=== PATIENT | male | born 1950 | race American Indian/Alaskan Native ===

== ENCOUNTER 2018-08-20 12:21 | Inpatient (IN) | payer MEDICARE ==
--- NOTE | 2018-08-20 12:48 | Emergency Department Report ---
Blank Doc - Documentation Documentation: This is a 68-year-old male that presents with left sided weakness, slurred spe ech, and facial drooping since Friday. This initial assessment/diagnostic orders/clinical plan/treatment(s) is/are subject to change based on patient's health status, clinical progression and re-assessment by fellow clinical providers in the ED. Further treatment and workup at subsequent clinical providers discretion. Patient/guardians urged not to elope from the ED as their condition may be serious if not clinically assessed and managed. Initial orders include: 1- Patient sent to MAIN ED for further evaluation and treatment 2- labs '3- CT head 4- EKG
[2018-08-20 13:10] LABS: Basophils # (Auto) 0.1 K/mm3 (0.0-0.1); Basophils % (Auto) 1.3 % (0.0-1.8); Eosinophils # (Auto) 0.2 K/mm3 (0.0-0.4); Eosinophils % (Auto) 3.2 % (0.0-4.3); Hematocrit 43.9 % (35.5-45.6); Hemoglobin 15.3 gm/dl (11.8-15.2); Lymphocytes # (Auto) 1.4 K/mm3 (1.2-5.4); Lymphocytes % (Auto) 26.2 % (13.4-35.0); Mean Corpuscular HGB Conc 35 % (32-34); Mean Corpuscular Volume 92 fl (84-94); Monocytes # (Auto) 0.5 K/mm3 (0.0-0.8); Monocytes % (Auto) 9.4 % (0.0-7.3); Platelet Count 231 K/mm3 (140-440); Red Blood Count 4.79 M/mm3 (3.65-5.03); Red Cell Distribution Width 15.1 % (13.2-15.2)
[2018-08-20 13:23] LABS: INR 1.02 (0.87-1.13)
[2018-08-20 13:24] LABS: Partial Thromboplastin Time 26.7 Sec. (24.2-36.6); Thrombin Time 15.8 Sec. (15.1-19.6)
[2018-08-20] MEDS ORDERED: BABY ASPIRIN PO ONE (13:34)
[2018-08-20 13:35] LABS: Creatine Kinase MB 4.2 ng/mL (0.0-4.0)
[2018-08-20 13:37] LABS: Alanine Aminotransferase 11 units/L (7-56); Albumin 3.7 g/dL (3.9-5); BUN/Creatinine Ratio 14; Blood Urea Nitrogen 13 mg/dL (9-20); Calcium 8.9 mg/dL (8.4-10.2); Hemolysis Index 33
--- NOTE | 2018-08-20 13:42 | History and Physical Report ---
History of Present Illness Chief complaint: I feel weak on my left side, History of present illness: 68 YO Male with HTN, COPD, Nicotine Dependence,Gout presents to ED for evaluation. Pt states that he has experienced weakness to his left arm and leg, as well as left sided facial droop over the past 3 days, with persistent symptoms over the same time frame. Pt acknowledges difficulty with ambulation. Pt states that he thought symptoms would go away and did not seek urgent medical care. Pt transported to [facility] ED via private vehicle. Pt seen and evaluated in ED and found to have symptoms consistent with CVA, as well as EKG findings consistent with Atrial Fib, New onset. Pt denies fever, chills, CP, Palpitations, NVD, Trauma, unintentional weight loss, night sweats, skin rash, heat intolerance, or recent ill contacts. Pt admitted to telemetry and initiated on CVA protocol. Cardiology consulted in ED. CHADs 2 Vasc Score:4. Previous admission on 03/09/18 reviewed. All listed medication reconciled at time of a dmission. Past History Past Medical History: COPD, hypertension Past Surgical History: No surgical history, Other (reviewed) Social history: single, lives with family, smoking Family history: hypertension Medications and Allergies Allergies Allergy/AdvReac Type Severity Reaction Status Date / Time No Known Allergies Allergy Unverified 03/09/18 00:51 Home Medications Medication Instructions Recorded Confirmed Last Taken Type Indomethacin 25 mg PO BID 03/09/18 03/09/18 Unknown History Symbicort 160-4.5 Mcg Inhaler 160 mcg INHALATION BID 03/09/18 03/09/18 03/08/18 10:00 History 2 puffs Tamsulosin 0.4 mg PO DAILY 03/09/18 03/09/18 Unknown History amLODIPine 10 mg PO DAILY 03/09/18 03/09/18 Unknown History Albuterol Sulfate [Ventolin Hfa] 2 puff IH QID PRN #1 hfa.aer.ad 03/10/18 Unknown Rx Nicotine [Habitrol] 14 mg TD DAILY #30 patch 03/10/18 Unknown Rx Prednisone [predniSONE 5 mg (6-Day 5 mg PO .TAPER #1 tab.ds.pk 03/10/18 Unknown Rx Pack, 21 Tabs)] Review of Systems Constitutional: no weight loss, no weight gain, no fever, no chills Ears, nose, mouth and throat: no ear pain, no decreased hearing, no nose pain, no nasal congestion, no nasal discharge Cardiovascular: no chest pain, no orthopnea, no palpitations, no rapid/irregular heart beat, no edema, no syncope Respiratory: no cough, no cough with sputum, no excessive sputum, no hemoptysis, no shortness of breath Gastrointestinal: no abdominal pain, no nausea, no vomiting, no diarrhea, no constipation, no change in bowel habits Genitourinary Male: no hematuria, no flank pain, no discharge, no urinary frequency, no urinary hesitancy Rectal: no pain, no incontinence, no bleeding Musculoskeletal: no neck stiffness, no neck pain, no shooting arm pain, no arm numbness/tingling, no low back pain Integumentary: no rash, no pruritis, no redness, no sores, no wounds Neurological: paralysis, weakness, numbness, change in speech, balance difficulties, gait dysfunction, motor disturbance, no head injury, no transient paralysis Psychiatric: no anxiety, no memory loss, no change in sleep habits, no sleep d isturbances, no insomnia, no hypersomnia, no change in appetite Endocrine: no cold intolerance, no heat intolerance, no polyphagia, no excessive thirst, no polydipsia Hematologic/Lymphatic: no easy bruising, no easy bleeding Allergic/Immunologic: no urticaria, no allergic rhinitis, no wheezing Exam - Constitutional Vitals: Temp Pulse Resp BP Pulse Ox 98 F 72 18 147/94 99 08/20/18 12:50 08/20/18 12:50 08/20/18 12:50 08/20/18 12:50 08/20/18 12:50 General appearance: Present: mild distress - EENT Eyes: Present: PERRL ENT: hearing intact, clear oral mucosa, poor dentition - Neck Neck: Present: supple, normal ROM - Respiratory Respiratory effort: normal Respiratory: bilateral: CTA - Cardiovascular Rhythm: irregularly irregular Heart Sounds: Present: S1 & S2. Absent: rub, click - Extremities Extremities: pulses symmetrical, No edema Peripheral Pulses: within normal limits - Abdominal General gastrointestinal: Present: soft, non-tender, non-distended, normal bowel sounds Male genitourinary: Present: normal - Integumentary Integumentary: Present: clear, warm, dry - Musculoskeletal Musculoskeletal: left sided weakness - Psychiatric Psychiatric: appropriate mood/affect, intact judgment & insight - Neurologic Neurologic: CNII-XII intact, focal deficits, moves all extremities, no gait normal Results - Labs CBC & Chem 7: 08/20/18 12:57 08/20/18 12:57 Labs: Abnormal lab results 08/20/18 08/20/18 Range/Units 12:57 12:57 Hgb 15.3 H (11.8-15.2) gm/dl MCHC 35 H (32-34) % [place] % (Auto) 9.4 H (0.0-7.3) % Sodium 135 L (137-145) mmol/L Potassium 3.2 L (3.6-5.0) mmol/L Chloride 109.3 H (98-107) mmol/L Glucose 108 H (75-100) mg/dL Total Creatine Kinase 209 H (55-170) units/L CK-MB (CK-2) 4.2 H (0.0-4.0) ng/mL Albumin 3.7 L (3.9-5) g/dL Assessment and Plan - Patient Problems (1) Acute CVA (cerebrovascular accident) Current Visit: Yes Status: Acute Plan to address problem: Stroke Protocol: Admit to telemetry, (2) Hypokalemia Current Visit: Yes Status: Acute Plan to address problem: Repleted in ED, repeat bmp in am. (3) New onset atrial fibrillation Current Visit: Yes Status: Acute Plan to address problem: Rate controlled, Echo, Cardiology consulted in ED, CHADs 2Vasc Score:4, The rapeutic anticoagulation with Eliquis, telemetry. (4) HTN (hypertension) Current Visit: No Status: Acute Qualifiers: Hypertension type: essential hypertension Qualified Code(s): I10 - Essential (primary) hypertension Plan to address problem: Permissive hypertension overnight, hold antihypertensive medication overnight, monitor BP q shift, (5) Noncompliance with medication regimen Current Visit: No Status: Acute Plan to address problem: Pt counseled regarding medication noncompliance. (6) Nicotine dependence with withdrawal Current Visit: Yes Status: Acute Qualifiers: Nicotine product type: cigarettes Qualified Code(s): F17.213 - Nicotine dependence, cigarettes, with withdrawal Plan to address problem: Smoking cessation counseling, supportive care. (7) COPD (chronic obstructive pulmonary disease) Current Visit: Yes Status: Acute Qualifiers: Chronic bronchitis type: unspecified Plan to address problem: Supplemental oxygen, nebulizer therapy, smoking cessation, supportive care, pulse oximetry. (8) DVT prophylaxis Current Visit: Yes Status: Acute Plan to address problem: SCD to BLE while in bed, Therapeutic anticoagulation.
--- NOTE | 2018-08-20 13:43 | Emergency Department Report ---
ED Neuro Deficit HPI - General Chief Complaint: Neuro Symptoms/Deficit Stated Complaint: POSSIBLE STROKE Time Seen by Provider: 08/20/18 12:46 Source: patient Mode of arrival: Ambulatory Limitations: No Limitations - History of Present Illness Initial Comments: Mr. Jordan is a pleasant 68 yo male with hx of HTN, COPD, tobacco abuse who presents with left sided weakness and facial droop since Friday 3 days ago. Denies pain. No hx of irregular heart beat. No hx of alcohol use. He is a retired customer service driver. Brought to ED by his roomate Sabina. -: Gradual, days(s) (3) Location: left face, left arm, left leg Presenting Symptoms: Present: Weak/Paralyzed One Side Place: home Severity: moderate Quality: weak Improves With: none Worsens With: none On Anticoagulants: No Context: gradual onset Associated Symptoms: denies other symptoms Treatments Prior to Arrival: none - Related Data Home Medications: Home Medications Medication Instructions Recorded Confirmed Last Taken Indomethacin 25 mg PO BID 03/09/18 03/09/18 Unknown Symbicort 160-4.5 Mcg Inhaler 160 mcg INHALATION BID 03/09/18 03/09/18 03/08/18 10:00 2 puffs Tamsulosin 0.4 mg PO DAILY 03/09/18 03/09/18 Unknown amLODIPine 10 mg PO DAILY 03/09/18 03/09/18 Unknown Previous Rx's Medication Instructions Recorded Last Taken Type Albuterol Sulfate [Ventolin Hfa] 2 puff IH QID PRN #1 hfa.aer.ad 03/10/18 Unknown Rx Nicotine [Habitrol] 14 mg TD DAILY #30 patch 03/10/18 Unknown Rx Prednisone [predniSONE 5 mg (6-Day 5 mg PO .TAPER #1 tab.ds.pk 03/10/18 Unknown Rx Pack, 21 Tabs)] Allergies/Adverse Reactions: Allergies Allergy/AdvReac Type Severity Reaction Status Date / Time No Known Allergies Allergy Unverified 03/09/18 00:51 ED Review of Systems ROS: Stated complaint: POSSIBLE STROKE Other details as noted in HPI Comment: All other systems reviewed and negative Constitutional: denies: fever, malaise Respiratory: denies: cough Cardiovascular: denies: palpitations ED Past Medical Hx - Past Medical History Previous Medical History?: Yes Hx Hypertension: Yes Hx Asthma: Yes Hx COPD: Yes Additional medical history: Gout - Surgical History Past Surgical History?: No - Family History Family history: other (Patient can not recall) - Social History Smoking Status: Current Every Day Smoker Substance Use Type: None - Medications Home Medications: Home Medications Medication Instructions Recorded Confirmed Last Taken Type Indomethacin 25 mg PO BID 03/09/18 03/09/18 Unknown History Symbicort 160-4.5 Mcg Inhaler 160 mcg INHALATION BID 03/09/18 03/09/18 03/08/18 10:00 History 2 puffs Tamsulosin 0.4 mg PO DAILY 03/09/18 03/09/18 Unknown History amLODIPine 10 mg PO DAILY 03/09/18 03/09/18 Unknown History Albuterol Sulfate [Ventolin Hfa] 2 puff IH QID PRN #1 hfa.aer.ad 03/10/18 Unknown Rx Nicotine [Habitrol] 14 mg TD DAILY #30 patch 03/10/18 Unknown Rx Prednisone [predniSONE 5 mg (6-Day 5 mg PO .TAPER #1 tab.ds.pk 03/10/18 Unknown Rx Pack, 21 Tabs)] ED Neuro Physical Exam - General Limitations: No Limitations General appearance: alert, other (apparent left facial droop) Suspected Stroke: Yes - Head Head exam: Present: atraumatic, normocephalic - Eye Eye exam: Present: normal appearance - ENT ENT exam: Present: mucous membranes moist - Neck Neck exam: Present: normal inspection, full ROM - Respiratory Respiratory exam: Present: normal lung sounds bilaterally. Absent: respiratory distress, wheezes, rales, rhonchi, stridor - Cardiovascular Cardiovascular Exam: Present: regular rate, normal rhythm, normal heart sounds. Absent: systolic murmur, diastolic murmur, rubs, gallop - GI/Abdominal GI/Abdominal exam: Present: soft, normal bowel sounds. Absent: distended, tenderness, guarding, rebound - Rectal Rectal exam: Present: deferred - Extremities Exam Extremities exam: Present: normal inspection - Back Exam Back exam: Present: normal inspection - Neurological Exam Neurological exam: Present: alert, oriented X3 - NIHSS Assessment Interval: Baseline 1a. Level of Consciousness: alert/keenly responsive 1b. LOC Questions: answers both correctly 1c. LOC Commands: performs no tasks correctly 2. Best Gaze: normal 3. Visual: no visual loss 4. Facial Palsy: partial paralysis 5b. Motor Arm Right: no drift 5a. Motor Arm Left: drift 6a. Motor Leg Left: drift 6b. Motor Leg Right: no drift 7. Limb Ataxia: absent 8. Sensory: mild/moderate sensory loss 9. Best Language: mild/moderate aphasia 10. Dysarthria: mild/moderate dysarthria 11. Extinction/Inattention: visual/tactile inattention Total Score: 10 Stroke Severity: Moderate Stroke - Psychiatric Psychiatric exam: Present: normal affect, normal mood - Skin Skin exam: Present: warm, dry, intact, normal color. Absent: rash ED Course Vital Signs 08/20/18 12:50 Temperature 98 F Pulse Rate 72 Respiratory 18 Rate Blood Pressure 147/94 O2 Sat by Pulse 99 Oximetry - Lab Data Result diagrams: 08/20/18 12:57 08/20/18 12:57 Lab Results 08/20/18 08/20/18 08/20/18 Range/Units 12:54 12:57 12:57 WBC 5.4 (4.5-11.0) K/mm3 RBC 4.79 (3.65-5.03) M/mm3 Hgb 15.3 H (11.8-15.2) gm/dl Hct 43.9 (35.5-45.6) % MCV 92 (84-94) fl MCH 32 (28-32) pg MCHC 35 H (32-34) % RDW 15.1 (13.2-15.2) % Plt Count 231 (140-440) K/mm3 Lymph % (Auto) 26.2 (13.4-35.0) % [place] % (Auto) 9.4 H (0.0-7.3) % Eos % (Auto) 3.2 (0.0-4.3) % Baso % (Auto) 1.3 (0.0-1.8) % Lymph # 1.4 (1.2-5.4) K/mm3 [place] # 0.5 (0.0-0.8) K/mm3 Eos # 0.2 (0.0-0.4) K/mm3 Baso # 0.1 (0.0-0.1) K/mm3 Seg Neutrophils % 59.9 (40.0-70.0) % Seg Neutrophils # 3.2 (1.8-7.7) K/mm3 PT 14.0 (12.2-14.9) Sec. INR 1.02 (0.87-1.13) APTT 26.7 (24.2-36.6) Sec. Thrombin Time 15.8 (15.1-19.6) Sec. Sodium (137-145) mmol/L Potassium (3.6-5.0) mmol/L Chloride (98-107) mmol/L Carbon Dioxide (22-30) mmol/L Anion Gap mmol/L BUN (9-20) mg/dL Creatinine (0.8-1.5) mg/dL Estimated GFR ml/min BUN/Creatinine Ratio % Glucose (75-100) mg/dL POC Glucose 86 (70-105) Calcium (8.4-10.2) mg/dL Total Bilirubin (0.1-1.2) mg/dL AST (5-40) units/L ALT (7-56) units/L Alkaline Phosphatase (35-129) units/L Total Creatine Kinase (55-170) units/L CK-MB (CK-2) (0.0-4.0) ng/mL CK-MB (CK-2) Rel Index (0-4) Troponin T (0.00-0.029) ng/mL Total Protein (6.3-8.2) g/dL Albumin (3.9-5) g/dL Albumin/Globulin Ratio % Urine Color (Yellow) Urine Turbidity (Clear) Urine pH (5.0-7.0) Ur Specific [place] (1.003-1.030) Urine Protein (Negative) mg/dL Urine Glucose (UA) (Negative) mg/dL Urine Ketones (Negative) mg/dL Urine Blood (Negative) Urine Nitrite (Negative) Urine Bilirubin (Negative) Urine Urobilinogen (<2.0) mg/dL Ur Leukocyte Esterase (Negative) Urine WBC (Auto) (0.0-6.0) /HPF Urine RBC (Auto) (0.0-6.0) /HPF Urine Mucus /HPF 08/20/18 08/20/18 08/20/18 Range/Units 12:57 13:18 Unknown WBC (4.5-11.0) K/mm3 RBC (3.65-5.03) M/mm3 Hgb (11.8-15.2) gm/dl Hct (35.5-45.6) % MCV (84-94) fl MCH (28-32) pg MCHC (32-34) % RDW (13.2-15.2) % Plt Count (140-440) K/mm3 Lymph % (Auto) (13.4-35.0) % [place] % (Auto) (0.0-7.3) % Eos % (Auto) (0.0-4.3) % Baso % (Auto) (0.0-1.8) % Lymph # (1.2-5.4) K/mm3 [place] # (0.0-0.8) K/mm3 Eos # (0.0-0.4) K/mm3 Baso # (0.0-0.1) K/mm3 Seg Neutrophils % (40.0-70.0) % Seg Neutrophils # (1.8-7.7) K/mm3 PT (12.2-14.9) Sec. INR (0.87-1.13) APTT (24.2-36.6) Sec. Thrombin Time (15.1-19.6) Sec. Sodium 135 L (137-145) mmol/L Potassium 3.2 L (3.6-5.0) mmol/L Chloride 109.3 H (98-107) mmol/L Carbon Dioxide 23 (22-30) mmol/L Anion Gap 6 mmol/L BUN 13 (9-20) mg/dL Creatinine 0.9 (0.8-1.5) mg/dL Estimated GFR > 60 ml/min BUN/Creatinine Ratio 14 % Glucose 108 H (75-100) mg/dL POC Glucose 80 (70-105) Calcium 8.9 (8.4-10.2) mg/dL Total Bilirubin 0.30 (0.1-1.2) mg/dL AST 15 (5-40) units/L ALT 11 (7-56) units/L Alkaline Phosphatase 91 (35-129) units/L Total Creatine Kinase 209 H (55-170) units/L CK-MB (CK-2) 4.2 H (0.0-4.0) ng/mL CK-MB (CK-2) Rel Index 2.0 (0-4) Troponin T < 0.010 (0.00-0.029) ng/mL Total Protein 7.3 (6.3-8.2) g/dL Albumin 3.7 L (3.9-5) g/dL Albumin/Globulin Ratio 1.0 % Urine Color Yellow (Yellow) Urine Turbidity Clear (Clear) Urine pH 5.0 (5.0-7.0) Ur Specific [place] 1.031 H (1.003-1.030) Urine Protein <15 mg/dl (Negative) mg/dL Urine Glucose (UA) Neg (Negative) mg/dL Urine Ketones Neg (Negative) mg/dL Urine Blood Neg (Negative) Urine Nitrite Neg (Negative) Urine Bilirubin Neg (Negative) Urine Urobilinogen 2.0 (<2.0) mg/dL Ur Leukocyte Esterase Neg (Negative) Urine WBC (Auto) 1.0 (0.0-6.0) /HPF Urine RBC (Auto) 1.0 (0.0-6.0) /HPF Urine Mucus Few /HPF 08/20/18 13:41 Atrial fibrillation ventricular rate 80 beats a minute nonspecific T-wave pattern and no significant ST elevation, normal sinus rhythm seen on EKG obtained February 2018 - Radiology Data Radiology results: report reviewed CT head without acute process according to radiology report - Medical Decision Making Acute CVA, 3 days status post sudden onset. Due to time of onset neither TPA nor thrombectomy is indicated. Admitted to the hospitalist service for further treatment and evaluation. According to patient's report and review of previous EKG and electronic medical record, atrial fibrillation seen on today's exam new-onset. Upon reexamination patient was ambulatory with assistance. Critical care attestation.: If time is entered above; I have spent that time in minutes in the direct care of this critically ill patient, excluding procedure time. ED Disposition Clinical Impression: Acute CVA (cerebrovascular accident), New onset atrial fibrillation Disposition: OP ADMIT IP TO THIS HOSP Is pt being admited?: Yes Does the pt Need Aspirin: No Condition: Stable Referrals: PRIMARY CARE, [Primary Care Provider] - 3-5 Days
[2018-08-20] MEDS ORDERED: DULCOLAX PR PRN (13:44)
[2018-08-20] MEDS ORDERED: PROVENTIL IH PRN (13:44)
[2018-08-20] MEDS ORDERED: MILK OF MAGNESIA PO PRN (13:44)
[2018-08-20] MEDS ORDERED: ZOFRAN IV PRN (13:44)
[2018-08-20] MEDS ORDERED: PHENERGAN PR PRN (13:44)
[2018-08-20] MEDS ORDERED: REGLAN PO PRN (13:44)
[2018-08-20] MEDS ORDERED: TYLENOL PO PRN (13:44)
--- NOTE | 2018-08-20 13:58 | Cat Scan Report ---
PROCEDURE: CT HEAD/BRAIN WO CON TECHNIQUE: A noncontrast CT of the head was performed. HISTORY: Stroke symptoms COMPARISON: None FINDINGS: There is no acute intracranial hemorrhage. There is no brain edema, mass effect or midline shift. Ventricular size is appropriate for brain volume. There is no abnormal extra-axial fluid collections. There is no skull fracture seen. There is some sinus mucosal thickening. IMPRESSION: There is no acute intracranial abnormality seen. This document is electronically signed by Kavita Suggs MD., August 20 2018 01:56:54 PM ET
[2018-08-20 14:23] LABS: Bilirubin,Urine NEG (Negative); Blood,Urine NEG (Negative); Color,Urine Yellow (Yellow); Mucus,Urine FEW /HPF; Protein,Urine <15 mg/dL mg/dL (Negative)
[2018-08-20] MEDS ORDERED: K-DUR PO NR (16:24)
--- NOTE | 2018-08-20 16:34 | Vascular Lab Report ---
PROCEDURE: VL CAROTID DUPLEX BILAT TECHNIQUE: Duplex Doppler ultrasound of the common, internal and external carotid arteries and the v ertebral arteries was performed bilaterally. Jean scale imaging, velocity spectral waveform analysis, and color flow Doppler were employed. HISTORY: stroke COMPARISONS: None . Note: Measurement of carotid stenosis is based on flow velocity values that correlate with the [place] Symptomatic Carotid Endarterectomy Trial (NASCET) based stenosis criteria using the internal carotid artery diameter as the denominator for stenosis calculation. FINDINGS: RIGHT carotid artery: Velocities: ICA PSV: 77 cm/sec ICA End diastolic: 29 cm/sec CCA PSV: 81 cm/sec IC/CC ratio: 0.95 Plaque/color flow: There is heterogeneous partially calcified plaque within the carotid bulb extendi ng into the origin of the proximal internal carotid artery. . Without high-grade stenosis. RIGHT vertebral artery: Antegrade systolic and diastolic flow LEFT carotid artery: Velocities: ICA PSV: 86 cm/sec ICA End diastolic: 35 cm/sec CCA PSV: 79 cm/sec IC/CC ratio: 1.09 Plaque/color flow: There is a small amount of heterogeneous partially calcified plaque in the left c arotid bulb extending into the origin of the left internal carotid artery without high-grade stenosis . . LEFT vertebral artery: Antegrade systolic and diastolic flow IMPRESSION: Mild heterogeneous plaque in carotid bulbs bilaterally extending into the origins of the internal car otid arteries. The degree of stenosis is felt to be in the 16-49% range. No high-grade areas of steno sis are identified. Antegrade flow seen in both vertebral arteries. This document is electronically signed by Andrea Mcmahan MD., August 20 2018 04:32:09 PM ET
[2018-08-20 16:42] LABS: Free T4 (Free Thyroxine) 1.05 ng/dL (0.76-1.46)
--- NOTE | 2018-08-20 20:27 | Consultation ---
History of Present Illness Consult date: 08/20/18 Requesting physician: MENDEL SIEGEL Reason for Consult: left sided weakness History of present illness: 68 YO Male with HTN, COPD, Nicotine Dependence,Gout presents to ED for evaluation. Pt states that he has experienced weakness to his left arm and left sided facial droop over the past 3 days, with persistent symptoms over the same time frame. Pt acknowledges difficulty with ambulation. Pt states that he thought symptoms would go away and did not seek urgent medical care. However, on 08/20/18 his symptoms seemed to get worse and he presented to ER. He denies numbness except in the left hand. He denies leg weakness and feels that he can walk OK. He has had no headache with this nor vision symptoms. No denies chest pain, palpitations, nausea, diaphoresis, or dizziness. He was also found to be in atrial fib. Past History Past Medical History: COPD, hypertension Past Surgical History: No surgical history, Other (reviewed) Social history: single, lives with family, smoking Family history: hypertension Medications and Allergies Allergies Allergy/AdvReac Type Severity Reaction Status Date / Time No Known Allergies Allergy Unverified 03/09/18 00:51 Home Medications Medication Instructions Recorded Confirmed Last Taken Type Indomethacin 25 mg PO BID 03/09/18 08/20/18 1 Day Ago History ~08/19/18 Symbicort 160-4.5 Mcg Inhaler 160 mcg INHALATION BID 03/09/18 08/20/18 1 Day Ago History ~08/19/18 Tamsulosin 0.4 mg PO DAILY 03/09/18 08/20/18 1 Day Ago History ~08/19/18 amLODIPine 10 mg PO DAILY 03/09/18 08/20/18 1 Day Ago History ~08/19/18 Albuterol Sulfate [Ventolin Hfa] 2 puff IH QID PRN #1 hfa.aer.ad 03/10/18 08/20/18 1 Day Ago Rx ~08/19/18 Nicotine [Habitrol] 14 mg TD DAILY #30 patch 03/10/18 08/20/18 1 Day Ago Rx ~08/19/18 Prednisone [predniSONE 5 mg (6-Day 5 mg PO .TAPER #1 tab.ds.pk 03/10/18 08/20/18 1 Day Ago Rx Pack, 21 Tabs)] ~08/19/18 Active Meds: Active Medications Acetaminophen (Tylenol) 650 mg PO Q4H PRN PRN Reason: Pain, Mild (1-3) Albuterol (Proventil) 2.5 mg IH Q3HRT PRN PRN Reason: Shortness Of Breath Apixaban (Eliquis) 10 mg PO Q12HR [facility]; Protocol Arformoterol Tartrate (Brovana Nebu) 15 mcg IH Q12HRT [facility] Aspirin (Baby Aspirin) 81 mg PO QDAY [facility] Atorvastatin Calcium (Lipitor) 40 mg PO QHS [facility] Bisacodyl (Dulcolax) 10 mg LA QDAY PRN PRN Reason: Constipation Budesonide (Pulmicort) 1 mg IH Q12HRT [facility] Indomethacin (Indocin) 25 mg PO BID [facility] Magnesium Hydroxide (Milk Of Magnesia) 30 ml PO Q4H PRN PRN Reason: Constipation Metoclopramide HCl (Reglan) 10 mg PO Q6H PRN PRN Reason: Nausea And Vomiting Nicotine (Habitrol) 14 mg TD DAILY [facility] Ondansetron HCl (Zofran) 4 mg IV Q8H PRN PRN Reason: Nausea And Vomiting Potassium Chloride (K-Dur) 10 meq PO ONCE NR Stop: 08/20/18 23:59 Promethazine HCl (Phenergan) 25 mg LA Q6H PRN PRN Reason: Nausea And Vomiting Sodium Chloride (Sodium Chloride Flush Syringe 10 Ml) 10 ml IV PRN PRN PRN Reason: LINE FLUSH Tamsulosin HCl (Flomax) 0.4 mg PO QDAY [facility] Physical Examination - Vital Signs Vital Signs: Vital Signs Temp Pulse Resp BP Pulse Ox 98 F 72 18 147/94 99 08/20/18 12:50 08/20/18 12:50 08/20/18 12:50 08/20/18 12:50 08/20/18 12:50 - Physical Exam Narrative exam: General - Resting comfortably in bed. Neurological - Speech slightly slurred. produce inspector intact except for left facial droop. Motor -5/5 RUE and RLE as well as LLE. LUE - prox. - 4+/5, wrist extensors - 3+/5, finger extensors 3/5, analyst competitive intelligence 3/5 Reflexes - +1 on left, trace on right. Sensory - intact except for left fingers. Decreased touch. Cerebellar - intact on rt., difficult with left secondary to weakness. Results - Laboratory Findings CBC and BMP: 08/20/18 12:57 08/20/18 12:57 Abnormal Lab Findings: Abnormal Labs 08/20/18 08/20/18 08/20/18 12:57 12:57 Unknown Hgb 15.3 H MCHC 35 H [place] % (Auto) 9.4 H Sodium 135 L Potassium 3.2 L Chloride 109.3 H Glucose 108 H Total Creatine Kinase 209 H CK-MB (CK-2) 4.2 H Albumin 3.7 L Ur Specific [place] 1.031 H Assessment and Plan 68 YO Male with HTN, COPD, Nicotine Dependence,Gout presents to ED for evaluation. He seems to have had a subcortical stroke. MRI scan is pending. CT was unremarkable. Plan - proceed with ASA and atorvastatin.
[2018-08-20] MEDS: PULMICORT IH SCH (21:05)
[2018-08-20] MEDS: BROVANA NEBU IH SCH (21:06)
[2018-08-20] MEDS: ELIQUIS PO SCH (21:14)
[2018-08-20] MEDS: INDOCIN PO SCH (21:37)
[2018-08-20] MEDS ORDERED: INDOMETHACIN 25 MG PO SCH (22:00)
[2018-08-20] MEDS ORDERED: SYMBICORT INHALATION SCH (22:00)
[2018-08-21 05:57] LABS: Chol/HDL Ratio 3.31 %
[2018-08-21] MEDS: BROVANA NEBU IH SCH ×2 (08:21→20:15)
[2018-08-21] MEDS: PULMICORT IH SCH ×2 (08:21→20:15)
[2018-08-21] MEDS ORDERED: NON-FORMULARY (Tamsulosin 0.4 MG) PO SCH (10:00)
[2018-08-21] MEDS ORDERED: ASPIRIN PO SCH (10:00)
[2018-08-21] MEDS: INDOCIN PO SCH ×2 (10:00→21:08)
[2018-08-21] MEDS: FLOMAX PO SCH (10:15)
[2018-08-21] MEDS: ELIQUIS PO SCH (10:15)
[2018-08-21] MEDS: HABITROL TD SCH (10:15)
[2018-08-21] MEDS: BABY ASPIRIN PO SCH (13:40)
--- NOTE | 2018-08-21 15:29 | Progress Note ---
Assessment and Plan Assessment and plan: 68 YO Male with HTN, COPD, Nicotine Dependence,Gout presents to ED for evaluation. Pt states that he has experienced weakness to his left arm and leg, as well as left sided facial droop over the past 3 days, with persistent symptoms over the same time frame. Pt acknowledges difficulty with ambulation. Pt states that he thought symptoms would go away and did not seek urgent medical care. Pt transported to [facility] ED via private vehicle. Pt seen and evaluated in ED and found to have symptoms consistent with CVA, as well as EKG findings consistent with Atrial Fib, New onset. Pt denies fever, chills, CP, P alpitations, NVD, Trauma, unintentional weight loss, night sweats, skin rash, heat intolerance, or recent ill contacts. Pt admitted to telemetry and initiated on CVA protocol. Cardiology consulted in ED. CHADs 2 Vasc Score:4. Previous admission on 03/09/18 reviewed. All listed medication reconciled at time of admission. * On admission patient was noted to have atrial fibrillation * Patient was started on treatment with aspirin and statin also neurologic cardiology consulted * Echocardiogram showed EF of 60-65% with a negative contrast bubble study * Eliquis started * Tobacco cessation counselling provided 15mins, pt verbalized understanding * - Patient Problems (1) Acute CVA (cerebrovascular accident) Continue current management await MRI report. Plan - proceed with ASA and atorvastatin. per Neurologic (2) Hypokalemia Current Visit: Yes Status: Acute Plan to address problem: Repleted in ED, repeat bmp in am. (3) New onset atrial fibrillation Current Visit: Yes Status: Acute Plan to address problem: Rate controlled, Echo, Cardiology consulted in ED, CHADs 2Vasc Score:4, Therapeutic anticoagulation with Eliquis, telemetry. (4) HTN (hypertension) Current Visit: No Status: Acute Qualifiers: Hypertension type: essential hypertension Qualified Code(s): I10 - Essential (primary) hypertension Plan to address problem: Permissive hypertension overnight, will now restart antihypertensive medication overnight, monitor BP q shift, (5) Noncompliance with medication regimen Current Visit: No Status: Acute Plan to address problem: Pt counseled regarding medication noncompliance. (6) Nicotine dependence with withdrawal Current Visit: Yes Status: Acute Qualifiers: Nicotine product type: cigarettes Qualified Code(s): F17.213 - Nicotine dependence, cigarettes, with withdrawal Plan to address problem: Smoking cessation counseling, supportive care. (7) COPD (chronic obstructive pulmonary disease) Current Visit: Yes Status: Acute Qualifiers: Chronic bronchitis type: unspecified Plan to address problem: Supplemental oxygen, nebulizer therapy, smoking cessation, supportive care, pulse oximetry. (8) DVT prophylaxis Current Visit: Yes Status: Acute Plan to address problem: SCD to BLE while in bed, Therapeutic anticoagulation. History Interval history: Patient seen and examined in no acute distress at this time no dysarthria noted. Still with notable left facial droop. Hospitalist Physical - Physical exam Narrative exam: VITAL SIGNS: Reviewed. GENERAL: The patient appeared well nourished and normally developed, except for slurred speech and left facial droop Vital signs as documented. HEAD: No signs of head trauma. EYES: Pupils are equal. Extraocular motions intact. EARS: Hearing grossly intact. MOUTH: Oropharynx is normal. NECK: No adenopathy, no JVD. CHEST: Chest with clear breath sounds bilaterally. No wheezes, rales, or rhonchi. CARDIAC: Regular rate and rhythm. S1 and S2, without murmurs, gallops, or rubs. VASCULAR: No Edema. Peripheral pulses normal and equal in all extremities. ABDOMEN: Soft, non tender and non distended. No rebound or guarding, and no masses palpated. Bowel Sounds normal. MUSCULOSKELETAL: Good range of motion of all major joints. Extremities without clubbing, cyanosis or edema. NEUROLOGIC EXAM: Alert and oriented x 3 over 5 motor strength left upper extremity with mild slurred speech. Otherwise follows command. Gait not assessed at this time PSYCHIATRIC: Mood normal. SKIN: No rash or lesions. - Constitutional Vitals: Temp Pulse Resp BP Pulse Ox 98.3 F 82 16 88/64 98 08/21/18 08:11 08/21/18 08:32 08/21/18 08:32 08/21/18 08:11 08/21/18 08:11 General appearance: Present: mild distress Results - Labs CBC & Chem 7: 08/20/18 12:57 08/20/18 12:57 Labs: Laboratory Last Values WBC 5.4 K/mm3 (4.5-11.0) 08/20/18 12:57 RBC 4.79 M/mm3 (3.65-5.03) 08/20/18 12:57 Hgb 15.3 gm/dl (11.8-15.2) H 08/20/18 12:57 Hct 43.9 % (35.5-45.6) 08/20/18 12:57 MCV 92 fl (84-94) 08/20/18 12:57 MCH 32 pg (28-32) 08/20/18 12:57 MCHC 35 % (32-34) H 08/20/18 12:57 RDW 15.1 % (13.2-15.2) 08/20/18 12:57 Plt Count 231 K/mm3 (140-440) 08/20/18 12:57 Lymph % (Auto) 26.2 % (13.4-35.0) 08/20/18 12:57 Hughes % (Auto) 9.4 % (0.0-7.3) H 08/20/18 12:57 Eos % (Auto) 3.2 % (0.0-4.3) 08/20/18 12:57 Baso % (Auto) 1.3 % (0.0-1.8) 08/20/18 12:57 Lymph # 1.4 K/mm3 (1.2-5.4) 08/20/18 12:57 Hughes # 0.5 K/mm3 (0.0-0.8) 08/20/18 12:57 Eos # 0.2 K/mm3 (0.0-0.4) 08/20/18 12:57 Baso # 0.1 K/mm3 (0.0-0.1) 08/20/18 12:57 Seg Neutrophils % 59.9 % (40.0-70.0) 08/20/18 12:57 Seg Neutrophils # 3.2 K/mm3 (1.8-7.7) 08/20/18 12:57 PT 14.0 Sec. (12.2-14.9) 08/20/18 12:57 INR 1.02 (0.87-1.13) 08/20/18 12:57 APTT 26.7 Sec. (24.2-36.6) 08/20/18 12:57 Thrombin Time 15.8 Sec. (15.1-19.6) 08/20/18 12:57 Sodium 135 mmol/L (137-145) L 08/20/18 12:57 Potassium 3.2 mmol/L (3.6-5.0) L 08/20/18 12:57 Chloride 109.3 mmol/L (98-107) H 08/20/18 12:57 Carbon Dioxide 23 mmol/L (22-30) 08/20/18 12:57 Anion Gap 6 mmol/L 08/20/18 12:57 BUN 13 mg/dL (9-20) 08/20/18 12:57 Creatinine 0.9 mg/dL (0.8-1.5) 08/20/18 12:57 Estimated GFR > 60 ml/min 08/20/18 12:57 BUN/Creatinine Ratio 14 % 08/20/18 12:57 Glucose 108 mg/dL (75-100) H 08/20/18 12:57 POC Glucose 112 (70-105) H 08/21/18 08:16 Calcium 8.9 mg/dL (8.4-10.2) 08/20/18 12:57 Total Bilirubin 0.30 mg/dL (0.1-1.2) 08/20/18 12:57 AST 15 units/L (5-40) 08/20/18 12:57 ALT 11 units/L (7-56) 08/20/18 12:57 Alkaline Phosphatase 91 units/L (35-129) 08/20/18 12:57 Total Creatine Kinase 209 units/L (55-170) H 08/20/18 12:57 CK-MB (CK-2) 4.2 ng/mL (0.0-4.0) H 08/20/18 12:57 CK-MB (CK-2) Rel Index 2.0 (0-4) 08/20/18 12:57 Troponin T < 0.010 ng/mL (0.00-0.029) 08/20/18 12:57 Total Protein 7.3 g/dL (6.3-8.2) 08/20/18 12:57 Albumin 3.7 g/dL (3.9-5) L 08/20/18 12:57 Albumin/Globulin Ratio 1.0 % 08/20/18 12:57 Triglycerides 197 mg/dL (2-149) H 08/21/18 04:31 Cholesterol 106 mg/dL (50-199) 08/21/18 04:31 LDL Cholesterol Direct 64 mg/dL (50-130) 08/21/18 04:31 HDL Cholesterol 32 mg/dL (40-59) L 08/21/18 04:31 Cholesterol/HDL Ratio 3.31 % 08/21/18 04:31 TSH 1.210 mlU/mL (0.270-4.200) 08/20/18 15:55 Free T4 1.05 ng/dL (0.76-1.46) 08/20/18 15:55 Urine Color Yellow (Yellow) 08/20/18 Unknown Urine Turbidity Clear (Clear) 08/20/18 Unknown Urine pH 5.0 (5.0-7.0) 08/20/18 Unknown Ur Specific [place] 1.031 (1.003-1.030) H 08/20/18 Unknown Urine Protein <15 mg/dl mg/dL (Negative) 08/20/18 Unknown Urine Glucose (UA) Neg mg/dL (Negative) 08/20/18 Unknown Urine Ketones Neg mg/dL (Negative) 08/20/18 Unknown Urine Blood Neg (Negative) 08/20/18 Unknown Urine Nitrite Neg (Negative) 08/20/18 Unknown Urine Bilirubin Neg (Negative) 08/20/18 Unknown Urine Urobilinogen 2.0 mg/dL (<2.0) 08/20/18 Unknown Ur Leukocyte Esterase Neg (Negative) 08/20/18 Unknown Urine WBC (Auto) 1.0 /HPF (0.0-6.0) 08/20/18 Unknown Urine RBC (Auto) 1.0 /HPF (0.0-6.0) 08/20/18 Unknown Urine Mucus Few /HPF 08/20/18 Unknown Active Medications - Current Medications Current Medications: Generic Name Dose Route Start Last Admin Trade Name Freq PRN Reason Stop Dose Admin Acetaminophen 650 mg 08/20/18 13:44 Tylenol PO Q4H PRN Pain, Mild (1-3) Albuterol 2.5 mg 08/20/18 13:44 Proventil IH Q3HRT PRN Shortness Of Breath Apixaban 10 mg 08/20/18 22:00 08/21/18 10:15 Eliquis PO 10 mg Q12HR KIERAN Administration Protocol Arformoterol Tartrate 15 mcg 08/20/18 20:00 08/21/18 08:21 Brovana Nebu IH 15 mcg Q12HRT KIERAN Administration Aspirin 81 mg 08/21/18 10:00 08/21/18 13:40 Baby Aspirin PO 81 mg QDAY KIERAN Administration Atorvastatin Calcium 40 mg 08/20/18 22:00 08/20/18 21:14 Lipitor PO 40 mg QHS KIERAN Administration Bisacodyl 10 mg 08/20/18 13:44 Dulcolax IA QDAY PRN Constipation Budesonide 1 mg 08/20/18 20:00 08/21/18 08:21 Pulmicort IH 1 mg Q12HRT KIERAN Administration Indomethacin 25 mg 08/20/18 22:00 08/20/18 21:37 Indocin PO 25 mg BID KIERAN Administration Magnesium Hydroxide 30 ml 08/20/18 13:44 Milk Of Magnesia PO Q4H PRN Constipation Metoclopramide HCl 10 mg 08/20/18 13:44 Reglan PO Q6H PRN Nausea And Vomiting Nicotine 14 mg 08/21/18 10:00 08/21/18 10:15 Habitrol TD 14 mg DAILY KIERAN Administration Ondansetron HCl 4 mg 08/20/18 13:44 Zofran IV Q8H PRN Nausea And Vomiting Promethazine HCl 25 mg 08/20/18 13:44 Phenergan IA Q6H PRN Nausea And Vomiting Sodium Chloride 10 ml 08/20/18 13:44 Sodium Chloride Flush Syringe 10 Ml IV PRN PRN LINE FLUSH Tamsulosin HCl 0.4 mg 08/21/18 10:00 08/21/18 10:15 Flomax PO 0.4 mg QDAY KIERAN Administration
[2018-08-21] MEDS ORDERED: PROAIR IH PRN (15:50)
--- NOTE | 2018-08-21 16:28 | Consultation ---
History of Present Illness Consult date: 08/21/18 Consult reason: atrial fibrillation History of present illness: Patient is a 68-year-old man with a history of hypertension and COPD. He presented to the hospital with complaints of right facial numbness. There was no report of limb weakness, or speech impairment. He was admitted for a couple of possible CVA or TIA. On presentation, patient's ECG was atrial fibrillation. Apparently, atrial fibrillation has not been reported on his previous ECGs. His last ECG in the hospital records from 6 months ago in February 2018 was in normal sinus rhythm. The patient denies chest pain, palpitations or unusual shortness of breath. His TSH level is normal at 1.2. He is a poor historian and unable to articulate any details of prior cardiac history or cardiac workup. Past History Past Medical History: COPD, hypertension Past Surgical History: No surgical history, Other (reviewed) Social history: single, lives with family, smoking Family history: hypertension Medications and Allergies Allergies Allergy/AdvReac Type Severity Reaction Status Date / Time No Known Allergies Allergy Unverified 03/09/18 00:51 Home Medications Medication Instructions Recorded Confirmed Last Taken Type Indomethacin 25 mg PO BID 03/09/18 08/20/18 1 Day Ago History ~08/19/18 Symbicort 160-4.5 Mcg Inhaler 160 mcg INHALATION BID 03/09/18 08/20/18 1 Day Ago History ~08/19/18 Tamsulosin 0.4 mg PO DAILY 03/09/18 08/20/18 1 Day Ago History ~08/19/18 amLODIPine 10 mg PO DAILY 03/09/18 08/20/18 1 Day Ago History ~08/19/18 Albuterol Sulfate [Ventolin Hfa] 2 puff IH QID PRN #1 hfa.aer.ad 03/10/18 08/20/18 1 Day Ago Rx ~08/19/18 Nicotine [Habitrol] 14 mg TD DAILY #30 patch 03/10/18 08/20/18 1 Day Ago Rx ~08/19/18 Prednisone [predniSONE 5 mg (6-Day 5 mg PO .TAPER #1 tab.ds.pk 03/10/18 08/20/18 1 Day Ago Rx Pack, 21 Tabs)] ~08/19/18 Active Meds: Active Medications Acetaminophen (Tylenol) 650 mg PO Q4H PRN PRN Reason: Pain, Mild (1-3) Albuterol (Proventil) 2.5 mg IH Q3HRT PRN PRN Reason: Shortness Of Breath Albuterol (Proair) 2 puff IH QID PRN PRN Reason: Shortness Of Breath Apixaban (Eliquis) 10 mg PO Q12HR [facility]; Protocol Last Admin: 08/21/18 10:15 Dose: 10 mg Documented by: Arformoterol Tartrate (Brovana Nebu) 15 mcg IH Q12HRT [facility] Last Admin: 08/21/18 08:21 Dose: 15 mcg Documented by: Aspirin (Baby Aspirin) 81 mg PO QDAY [facility] Last Admin: 08/21/18 13:40 Dose: 81 mg Documented by: Atorvastatin Calcium (Lipitor) 40 mg PO QHS [facility] Last Admin: 08/20/18 21:14 Dose: 40 mg Documented by: Bisacodyl (Dulcolax) 10 mg MN QDAY PRN PRN Reason: Constipation Budesonide (Pulmicort) 1 mg IH Q12HRT [facility] Last Admin: 08/21/18 08:21 Dose: 1 mg Documented by: Indomethacin (Indocin) 25 mg PO BID [facility] Last Admin: 08/20/18 21:37 Dose: 25 mg Documented by: Magnesium Hydroxide (Milk Of Magnesia) 30 ml PO Q4H PRN PRN Reason: Constipation Metoclopramide HCl (Reglan) 10 mg PO Q6H PRN PRN Reason: Nausea And Vomiting Miscellaneous Medication (Amlodipine) 10 mg PO DAILY [facility] Nicotine (Habitrol) 14 mg TD DAILY [facility] Last Admin: 08/21/18 10:15 Dose: 14 mg Documented by: Ondansetron HCl (Zofran) 4 mg IV Q8H PRN PRN Reason: Nausea And Vomiting Promethazine HCl (Phenergan) 25 mg MN Q6H PRN PRN Reason: Nausea And Vomiting Sodium Chloride (Sodium Chloride Flush Syringe 10 Ml) 10 ml IV PRN PRN PRN Reason: LINE FLUSH Tamsulosin HCl (Flomax) 0.4 mg PO QDAY [facility] Last Admin: 08/21/18 10:15 Dose: 0.4 mg Documented by: Review of Systems Cardiovascular: shortness of breath, no chest pain, no orthopnea, no palpitations, no rapid/irregular heart beat, no edema, no syncope, no lightheadedness Physical Examination Vital Signs Temp Pulse Resp BP Pulse Ox 98 F 72 18 147/94 99 08/20/18 12:50 08/20/18 12:50 08/20/18 12:50 08/20/18 12:50 08/20/18 12:50 General appearance: no acute distress HEENT: Positive: PERRL Neck: Positive: neck supple Cardiac: Positive: irregularly irregular Lungs: Positive: Decreased Breath Sounds Neuro: Positive: Grossly Intact Abdomen: Positive: Soft Male genitourinary: Positive: deferred Skin: Positive: Clear Extremities: Absent: edema Results 08/20/18 12:57 08/20/18 12:57 Lipids 08/21/18 Range/Units 04:31 Triglycerides 197 H (2-149) mg/dL Cholesterol 106 (50-199) mg/dL HDL Cholesterol 32 L (40-59) mg/dL Cholesterol/HDL Ratio 3.31 % EKG interpretations - Telemetry EKG Rhythm: Atrial Fibrillation Assessment and Plan - Patient Problems (1) New onset atrial fibrillation Current Visit: Yes Status: Acute Plan to address problem: Atrial fibrillation is new since the last ECG of 6 months ago. His rate control if currently optimal. Echocardiogram shows a dilated left and right atria, but normal left ventricular systolic function with ejection fraction 60-65%. A contrast bubble study is negative for PFO. Recommendations: Maintain optimal rate control, and recommend a long-term oral anticoagulation. Timing of initiation of anticoagulation will be dictated by neurology in the setting of possible acute cerebrovascular event.
[2018-08-21] MEDS ORDERED: PROVENTIL IH PRN (17:05)
[2018-08-21] MEDS: SODIUM CHLORIDE FLUSH SYRINGE 10 ML IV PRN (21:09)
[2018-08-21] MEDS ORDERED: ELIQUIS PO SCH (22:00)
[2018-08-22 06:03] LABS: BUN/Creatinine Ratio 10; Blood Urea Nitrogen 8 mg/dL (9-20); Calcium 8.9 mg/dL (8.4-10.2); Hemolysis Index 12
--- NOTE | 2018-08-22 06:55 | Progress Note ---
Assessment and Plan 1. Paroxysmal atrial fibrillation 2. Status post CVA 3. Essential hypertension 4. COPD Plan. Cardiac-renner stable cardiomegaly in a sinus rhythm neurologic symptoms appear to have resolved. Full anticoagulation long-term Subjective Date of service: 08/22/18 Interval history: No cardiac complains Objective Vital Signs Temp Pulse Pulse Resp Resp BP Pulse Ox 08/22/18 04:26 98.3 F 75 18 159/99 99 08/21/18 23:43 98.3 F 75 18 161/84 99 08/21/18 20:41 100 08/21/18 20:30 81 16 08/21/18 20:15 79 16 08/21/18 20:00 68 08/21/18 19:52 98.2 F 74 18 151/92 99 08/21/18 08:32 82 16 08/21/18 08:18 82 16 08/21/18 08:11 98.3 F 69 16 88/64 98 - Physical Examination General: Appears Well, No Apparent Distress HEENT: Positive: PERRL Neck: Positive: neck supple Cardiac: Lungs: Neuro: Positive: Grossly Intact Abdomen: Positive: Soft /Rectal: Normal Prostate, No Masses Skin: Positive: Clear Musculoskeletal: No Fluid Collection, No Pain, Normal Range of Motion Gait: Normal Gait Extremities: Absent: edema - Labs and Meds Comprehensive Metabolic Panel 08/22/18 Range/Units 04:22 Sodium 142 D (137-145) mmol/L Potassium 3.5 L (3.6-5.0) mmol/L Chloride 105.8 (98-107) mmol/L Carbon Dioxide 24 (22-30) mmol/L BUN 8 L (9-20) mg/dL Creatinine 0.8 (0.8-1.5) mg/dL Glucose 101 H (75-100) mg/dL Calcium 8.9 (8.4-10.2) mg/dL
[2018-08-22] MEDS: PULMICORT IH SCH ×2 (07:20→20:26)
[2018-08-22] MEDS: BROVANA NEBU IH SCH ×2 (07:20→20:26)
--- NOTE | 2018-08-22 08:04 | Progress Note ---
Assessment and Plan Assessment and plan: 68 YO Male with HTN, COPD, Nicotine Dependence,Gout presents to ED for evaluation. Pt states that he has experienced weakness to his left arm and leg, as well as left sided facial droop over the past 3 days, with persistent symptoms over the same time frame. Pt acknowledges difficulty with ambulation. Pt states that he thought symptoms would go away and did not seek urgent medical care. Pt transported to [facility] ED via private vehicle. Pt seen and evaluated in ED and found to have symptoms consistent with CVA, as well as EKG findings consistent with Atrial Fib, New onset. Pt denies fever, chills, CP, P alpitations, NVD, Trauma, unintentional weight loss, night sweats, skin rash, heat intolerance, or recent ill contacts. Pt admitted to telemetry and initiated on CVA protocol. Cardiology consulted in ED. CHADs 2 Vasc Score:4. Previous admission on 03/09/18 reviewed. All listed medication reconciled at time of admission. * On admission patient was noted to have atrial fibrillation * Patient was started on treatment with aspirin and statin also neurologic cardiology consulted * Echocardiogram showed EF of 60-65% with a negative contrast bubble study * Eliquis started but will hold till CVA status is determined PER CARDIOLOGY * CT head was negative. May repeat CT in am if unable to obtain MRI. * Tobacco cessation counselling provided 15mins, pt verbalized understanding * Unable to obtain MRI due to retained bullets was notified that patient needed something for sedation, Ativan prescribed, not sure why it was not done - Patient Problems (1) Acute CVA (cerebrovascular accident) Continue current management await MRI report. Plan - proceed with ASA and atorvastatin. per Neurologic (2) Hypokalemia Current Visit: Yes Status: Acute Plan to address problem: Repleted in ED, repeat bmp in am. (3) New onset atrial fibrillation Current Visit: Yes Status: Acute Plan to address problem: Rate controlled, Echo, Cardiology consulted in ED, CHADs 2Vasc Score:4, Therapeutic anticoagulation with Eliquis, telemetry. (4) HTN (hypertension) Current Visit: No Status: Acute Qualifiers: Hypertension type: essential hypertension Qualified Code(s): I10 - Essential (primary) hypertension Plan to address problem: Permissive hypertension overnight, will now restart antihypertensive medication overnight, monitor BP q shift, (5) Noncompliance with medication regimen Current Visit: No Status: Acute Plan to address problem: Pt counseled regarding medication noncompliance. (6) Nicotine dependence with withdrawal Current Visit: Yes Status: Acute Qualifiers: Nicotine product type: cigarettes Qualified Code(s): F17.213 - Nicotine dependence, cigarettes, with withdrawal Plan to address problem: Smoking cessation counseling, supportive care. (7) COPD (chronic obstructive pulmonary disease) Current Visit: Yes Status: Acute Qualifiers: Chronic bronchitis type: unspecified Plan to address problem: Supplemental oxygen, nebulizer therapy, smoking cessation, supportive care, pulse oximetry. (8) DVT prophylaxis Current Visit: Yes Status: Acute Plan to address problem: SCD to BLE while in bed, Therapeutic anticoagulation. History Interval history: Patient seen and examined in no acute distress at this time no dysarthria noted. facial droop improving Hospitalist Physical - Physical exam Narrative exam: VITAL SIGNS: Reviewed. GENERAL: The patient appeared well nourished and normally developed,speech improved, still some residual left facial droop Vital signs as documented. HEAD: No signs of head trauma. EYES: Pupils are equal. Extraocular motions intact. EARS: Hearing grossly intact. MOUTH: Oropharynx is normal. NECK: No adenopathy, no JVD. CHEST: Chest with clear breath sounds bilaterally. No wheezes, rales, or rhonchi. CARDIAC: Regular rate and rhythm. S1 and S2, without murmurs, gallops, or rubs. VASCULAR: No Edema. Peripheral pulses normal and equal in all extremities. ABDOMEN: Soft, non tender and non distended. No rebound or guarding, and no masses palpated. Bowel Sounds normal. MUSCULOSKELETAL: Good range of motion of all major joints. Extremities without clubbing, cyanosis or edema. NEUROLOGIC EXAM: Alert and oriented x 3 over 5 motor strength left upper extremity with mild slurred speech. Otherwise follows command. Gait not assessed at this time PSYCHIATRIC: Mood normal. SKIN: No rash or lesions. - Constitutional Vitals: Temp Pulse Resp BP Pulse Ox 98.1 F 65 18 162/114 100 08/22/18 07:33 08/22/18 07:42 08/22/18 07:33 08/22/18 07:33 08/22/18 07:33 General appearance: Present: no acute distress Results - Labs CBC & Chem 7: 08/20/18 12:57 08/22/18 04:22 Labs: Laboratory Last Values WBC 5.4 K/mm3 (4.5-11.0) 08/20/18 12:57 RBC 4.79 M/mm3 (3.65-5.03) 08/20/18 12:57 Hgb 15.3 gm/dl (11.8-15.2) H 08/20/18 12:57 Hct 43.9 % (35.5-45.6) 08/20/18 12:57 MCV 92 fl (84-94) 08/20/18 12:57 MCH 32 pg (28-32) 08/20/18 12:57 MCHC 35 % (32-34) H 08/20/18 12:57 RDW 15.1 % (13.2-15.2) 08/20/18 12:57 Plt Count 231 K/mm3 (140-440) 08/20/18 12:57 Lymph % (Auto) 26.2 % (13.4-35.0) 08/20/18 12:57 [place] % (Auto) 9.4 % (0.0-7.3) H 08/20/18 12:57 Eos % (Auto) 3.2 % (0.0-4.3) 08/20/18 12:57 Baso % (Auto) 1.3 % (0.0-1.8) 08/20/18 12:57 Lymph # 1.4 K/mm3 (1.2-5.4) 08/20/18 12:57 [place] # 0.5 K/mm3 (0.0-0.8) 08/20/18 12:57 Eos # 0.2 K/mm3 (0.0-0.4) 08/20/18 12:57 Baso # 0.1 K/mm3 (0.0-0.1) 08/20/18 12:57 Seg Neutrophils % 59.9 % (40.0-70.0) 08/20/18 12:57 Seg Neutrophils # 3.2 K/mm3 (1.8-7.7) 08/20/18 12:57 PT 14.0 Sec. (12.2-14.9) 08/20/18 12:57 INR 1.02 (0.87-1.13) 08/20/18 12:57 APTT 26.7 Sec. (24.2-36.6) 08/20/18 12:57 Thrombin Time 15.8 Sec. (15.1-19.6) 08/20/18 12:57 Sodium 142 mmol/L (137-145) D 08/22/18 04:22 Potassium 3.5 mmol/L (3.6-5.0) L 08/22/18 04:22 Chloride 105.8 mmol/L (98-107) 08/22/18 04:22 Carbon Dioxide 24 mmol/L (22-30) 08/22/18 04:22 Anion Gap 16 mmol/L 08/22/18 04:22 BUN 8 mg/dL (9-20) L 08/22/18 04:22 Creatinine 0.8 mg/dL (0.8-1.5) 08/22/18 04:22 Estimated GFR > 60 ml/min 08/22/18 04:22 BUN/Creatinine Ratio 10 % 08/22/18 04:22 Glucose 101 mg/dL (75-100) H 08/22/18 04:22 POC Glucose 112 (70-105) H 08/21/18 08:16 Calcium 8.9 mg/dL (8.4-10.2) 08/22/18 04:22 Total Bilirubin 0.30 mg/dL (0.1-1.2) 08/20/18 12:57 AST 15 units/L (5-40) 08/20/18 12:57 ALT 11 units/L (7-56) 08/20/18 12:57 Alkaline Phosphatase 91 units/L (35-129) 08/20/18 12:57 Total Creatine Kinase 209 units/L (55-170) H 08/20/18 12:57 CK-MB (CK-2) 4.2 ng/mL (0.0-4.0) H 08/20/18 12:57 CK-MB (CK-2) Rel Index 2.0 (0-4) 08/20/18 12:57 Troponin T < 0.010 ng/mL (0.00-0.029) 08/20/18 12:57 Total Protein 7.3 g/dL (6.3-8.2) 08/20/18 12:57 Albumin 3.7 g/dL (3.9-5) L 08/20/18 12:57 Albumin/Globulin Ratio 1.0 % 08/20/18 12:57 Triglycerides 197 mg/dL (2-149) H 08/21/18 04:31 Cholesterol 106 mg/dL (50-199) 08/21/18 04:31 LDL Cholesterol Direct 64 mg/dL (50-130) 08/21/18 04:31 HDL Cholesterol 32 mg/dL (40-59) L 08/21/18 04:31 Cholesterol/HDL Ratio 3.31 % 08/21/18 04:31 TSH 1.210 mlU/mL (0.270-4.200) 08/20/18 15:55 Free T4 1.05 ng/dL (0.76-1.46) 08/20/18 15:55 Urine Color Yellow (Yellow) 08/20/18 Unknown Urine Turbidity Clear (Clear) 08/20/18 Unknown Urine pH 5.0 (5.0-7.0) 08/20/18 Unknown Ur Specific [place] 1.031 (1.003-1.030) H 08/20/18 Unknown Urine Protein <15 mg/dl mg/dL (Negative) 08/20/18 Unknown Urine Glucose (UA) Neg mg/dL (Negative) 08/20/18 Unknown Urine Ketones Neg mg/dL (Negative) 08/20/18 Unknown Urine Blood Neg (Negative) 08/20/18 Unknown Urine Nitrite Neg (Negative) 08/20/18 Unknown Urine Bilirubin Neg (Negative) 08/20/18 Unknown Urine Urobilinogen 2.0 mg/dL (<2.0) 08/20/18 Unknown Ur Leukocyte Esterase Neg (Negative) 08/20/18 Unknown Urine WBC (Auto) 1.0 /HPF (0.0-6.0) 08/20/18 Unknown Urine RBC (Auto) 1.0 /HPF (0.0-6.0) 08/20/18 Unknown Urine Mucus Few /HPF 08/20/18 Unknown Active Medications - Current Medications Current Medications: Generic Name Dose Route Start Last Admin Trade Name Freq PRN Reason Stop Dose Admin Acetaminophen 650 mg 08/20/18 13:44 Tylenol PO Q4H PRN Pain, Mild (1-3) Albuterol 2.5 mg 08/20/18 13:44 Proventil IH Q3HRT PRN Shortness Of Breath Amlodipine Besylate 10 mg 08/22/18 10:00 Norvasc PO DAILY [facility] Apixaban 5 mg 08/21/18 22:00 08/21/18 21:08 Eliquis PO 5 mg Q12HR KIERAN Administration Arformoterol Tartrate 15 mcg 08/20/18 20:00 08/22/18 07:20 Brovana Nebu IH 15 mcg Q12HRT KIERAN Administration Aspirin 81 mg 08/21/18 10:00 08/21/18 13:40 Baby Aspirin PO 81 mg QDAY KIERAN Administration Atorvastatin Calcium 40 mg 08/20/18 22:00 08/21/18 21:08 Lipitor PO 40 mg QHS KIERAN Administration Bisacodyl 10 mg 08/20/18 13:44 Dulcolax MO QDAY PRN Constipation Budesonide 1 mg 08/20/18 20:00 08/22/18 07:20 Pulmicort IH 1 mg Q12HRT KIERAN Administration Indomethacin 25 mg 08/20/18 22:00 08/21/18 21:08 Indocin PO 25 mg BID [facility] Administration Magnesium Hydroxide 30 ml 08/20/18 13:44 Milk Of Magnesia PO Q4H PRN Constipation Metoclopramide HCl 10 mg 08/20/18 13:44 Reglan PO Q6H PRN Nausea And Vomiting Nicotine 14 mg 08/21/18 10:00 08/21/18 10:15 Habitrol TD 14 mg DAILY [facility] Administration Ondansetron HCl 4 mg 08/20/18 13:44 Zofran IV Q8H PRN Nausea And Vomiting Promethazine HCl 25 mg 08/20/18 13:44 Phenergan MO Q6H PRN Nausea And Vomiting Sodium Chloride 10 ml 08/20/18 13:44 08/21/18 21:09 Sodium Chloride Flush Syringe 10 Ml IV 10 ml PRN PRN Administration LINE FLUSH Tamsulosin HCl 0.4 mg 08/21/18 10:00 08/21/18 10:15 Flomax PO 0.4 mg QDAY KIERAN Administration
[2018-08-22] MEDS ORDERED: K-DUR PO ONE (08:06)
[2018-08-22] MEDS ORDERED: ATIVAN IV NR (08:15)
[2018-08-22] MEDS: HABITROL TD SCH (09:15)
[2018-08-22] MEDS: INDOCIN PO SCH ×2 (09:18→21:01)
[2018-08-22] MEDS: NORVASC PO SCH (09:18)
[2018-08-22] MEDS: BABY ASPIRIN PO SCH (09:19)
[2018-08-22] MEDS: FLOMAX PO SCH (09:19)
[2018-08-22] MEDS ORDERED: NON-FORMULARY (Amlodipine 10 MG) PO SCH (10:00)
[2018-08-23 07:35] VITALS: BP 184/99
[2018-08-23] MEDS: PULMICORT IH SCH (07:50)
[2018-08-23] MEDS: BROVANA NEBU IH SCH (07:50)
[2018-08-23] MEDS: NORVASC PO SCH (09:47)
[2018-08-23] MEDS: BABY ASPIRIN PO SCH (09:47)
[2018-08-23] MEDS: HABITROL TD SCH (09:47)
[2018-08-23] MEDS: INDOCIN PO SCH (09:47)
[2018-08-23] MEDS: FLOMAX PO SCH (09:47)
[2018-08-23] MEDS: SODIUM CHLORIDE FLUSH SYRINGE 10 ML IV PRN (09:47)
[2018-08-23] MEDS ORDERED: ZESTRIL PO SCH (10:00)
--- NOTE | 2018-08-23 10:48 | Discharge Summary ---
Providers - Providers Date of Admission: 08/20/18 13:44 Attending physician: HILDA KUHN MD 08/20/18 13:44 Occupational Therapy Evaluate and Treat [CONS] Routine Comment: Reason For Exam: Neuro deficits Physical Therapy Evaluation and Treat [CONS] Routine Comment: Reason For Exam: Neuro deficits 08/20/18 13:57 Consult to Physician [CONS] Routine Comment: Consulting Provider: KEVIN ALEXANDER Physician Instructions: Reason For Exam: cva 08/20/18 15:42 Consult to Physician [CONS] Routine Comment: Consulting Provider: DAVID FLANNERY Physician Instructions: Reason For Exam: Atrial Fib Primary care physician: [employer] Hospitalization Reason for admission: cva Condition: Stable Hospital course: 68 YO Male with HTN, COPD, Nicotine Dependence,Gout presents to ED for evaluation. Pt states that he has experienced weakness to his left arm and leg, as well as left sided facial droop over the past 3 days, with persistent symptoms over the same time frame. Pt acknowledges difficulty with ambulation. Pt states that he thought symptoms would go away and did not seek urgent medical care. Pt transported to [facility] ED via private vehicle. Pt seen and evaluated in ED and found to have symptoms consistent with CVA, as well as EKG findings consistent with Atrial Fib, New onset. Pt denies fever, chills, CP, Palpitation s, NVD, Trauma, unintentional weight loss, night sweats, skin rash, heat intolerance, or recent ill contacts. Pt admitted to telemetry and initiated on CVA protocol. Cardiology consulted in ED. CHADs 2 Vasc Score:4. Previous admission on 03/09/18 reviewed. All listed medication reconciled at time of admission. CT head IMPRESSION: 1. No acute intracranial abnormality. 2. Multifocal areas of low-attenuation in the cerebrum and cerebellum may be related to chronic microvascular ischemic disease versus old infarcts versus a demyelinating or inflammatory process. 3. 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 4. Mucosal thickening of the paranasal sinuses is likely congestive or inflammatory. * On admission patient was noted to have atrial fibrillation * Patient was started on treatment with aspirin and statin also neurologic cardiology consulted * Echocardiogram showed EF of 60-65% with a negative contrast bubble study * Eliquis started but will hold till CVA status is determined PER CARDIOLOGY * CT head was negative. May repeat CT in am if unable to obtain MRI. * Tobacco cessation counselling provided 15mins, pt verbalized understanding * Unable to obtain MRI due to retained bullets was notified that patient needed something for sedation, * On evaluate of Cardiology * recommended full anticoagulation, Eliquis started * Patient given extensive counselling (1)TIA (2) Hypokalemia (3) New onset atrial fibrillation (4) HTN (hypertension) (5) Noncompliance with medication regimen (6) Nicotine dependence with withdrawal (7) COPD (chronic obstructive pulmonary disease) Disposition: DC-01 TO HOME OR SELFCARE Time spent for discharge: 35 mins Core Measure Documentation - Palliative Care Palliative Care/ Comfort Measures: Not Applicable - Core Measures Any of the following diagnoses?: stroke - Stroke Discharge Requirements Statin for LDL = or >70 mg/dl on DC: Yes Anticoag for atrial fib/atrial flutter: Yes Antithrombotic for ischemic stroke: Yes Exam - Physical Exam Narrative exam: VITAL SIGNS: Reviewed. GENERAL: The patient appeared well nourished and normally developed,speech improved, still some residual left facial droop Vital signs as documented. HEAD: No signs of head trauma. EYES: Pupils are equal. Extraocular motions intact. EARS: Hearing grossly intact. MOUTH: Oropharynx is normal. NECK: No adenopathy, no JVD. CHEST: Chest with clear breath sounds bilaterally. No wheezes, rales, or rhonchi. CARDIAC: Regular rate and rhythm. S1 and S2, without murmurs, gallops, or rubs. VASCULAR: No Edema. Peripheral pulses normal and equal in all extremities. ABDOMEN: Soft, non tender and non distended. No rebound or guarding, and no masses palpated. Bowel Sounds normal. MUSCULOSKELETAL: Good range of motion of all major joints. Extremities without clubbing, cyanosis or edema. NEUROLOGIC EXAM: Alert and oriented x 3 over 5 motor strength left upper extremity with mild slurred speech. Otherwise follows command. Gait not assessed at this time PSYCHIATRIC: Mood normal. SKIN: No rash or lesions. - Constitutional Vitals: Temp Pulse Resp BP Pulse Ox 97.9 F 58 L 14 184/99 97 08/23/18 07:33 08/23/18 10:00 08/23/18 07:58 08/23/18 07:33 08/23/18 07:33 Plan Follow up with: PRIMARY CAREMD [Primary Care Provider] - 3-5 Days Forms: Discharge Signature Page Prescriptions: AtorvaSTATin [Lipitor] 40 mg PO QHS #30 tablet amLODIPine 10 mg PO DAILY #30 Aspirin [Aspirin BABY CHEW TAB] 81 mg PO QDAY #30 tab.chew Apixaban [Eliquis] 5 mg PO BID #60 tab.ds.pk Lisinopril [Zestril TAB] 20 mg PO QDAY #30 tablet
--- NOTE | 2018-08-23 12:01 | Progress Note ---
Assessment and Plan 1. Paroxysmal atrial fibrillation 2. Status post CVA 3. Essential hypertension 4. COPD Plan. Cardiac-renner stable cardiomegaly in a sinus rhythm neurologic symptoms appear to have resolved. Full anticoagulation long-term Subjective Date of service: 08/23/18 Interval history: No cardiac complains home today Objective Vital Signs Temp Pulse Pulse Pulse Resp Resp BP 08/23/18 10:00 58 L 58 L 08/23/18 07:58 65 14 08/23/18 07:50 60 16 08/23/18 07:33 97.9 F 63 18 184/99 08/23/18 03:50 98.0 F 66 20 159/101 08/22/18 23:33 98.0 F 57 L 18 169/102 08/22/18 22:00 83 08/22/18 20:41 72 18 08/22/18 20:28 69 18 08/22/18 19:25 98.0 F 82 18 158/90 08/22/18 16:32 97.9 F 72 18 141/86 08/22/18 13:48 84 148/84 Pulse Ox 08/23/18 10:00 08/23/18 07:58 08/23/18 07:50 08/23/18 07:33 97 08/23/18 03:50 100 08/22/18 23:33 100 08/22/18 22:00 08/22/18 20:41 08/22/18 20:28 97 08/22/18 19:25 96 08/22/18 16:32 99 08/22/18 13:48 79 L - Physical Examination General: Appears Well, No Apparent Distress HEENT: Positive: PERRL Neck: Positive: neck supple Cardiac: Lungs: Neuro: Positive: Grossly Intact Abdomen: Positive: Soft /Rectal: Normal Prostate, No Masses Skin: Positive: Clear Musculoskeletal: No Fluid Collection, No Pain, Normal Range of Motion Gait: Normal Gait Extremities: Absent: edema
--- NOTE | 2018-08-23 12:16 | Cat Scan Report ---
PROCEDURE: CT HEAD/BRAIN WO/W CON TECHNIQUE: CT of the head was performed without intravenous contrast. Subsequently, CT of the head w as performed after the administration of intravenous contrast. HISTORY: CVA COMPARISONS: 08/20/2018. FINDINGS: No enhancing masses are seen. A prominent vessel is seen within the right lateral frontal region. The ventricles are normal in position and shape. The ventricles are nondilated. No intracranial hemorrhage, mass, mass effect or evidence of acute ischemic infarct. Unchanged focal areas of low-attenuation in the right frontal subcortical white matter. Unchanged areas of low-attenu ation in the left cerebellar hemisphere and periventricular white matter. The basilar cisterns are patent. Mild mucosal thickening of the paranasal sinuses is likely congestive or inflammatory. The mastoid ai r cells are clear. The orbits are intact. The calvarium is intact. No extracranial soft tissue swelling. IMPRESSION: 1. No acute intracranial abnormality. 2. Multifocal areas of low-attenuation in the cerebrum and cerebellum may be related to chronic micro vascular ischemic disease versus old infarcts versus a demyelinating or inflammatory process. 3. Prominent vessel in the right lateral frontal region likely represents a developmental venous anom meliton. 4. Mucosal thickening of the paranasal sinuses is likely congestive or inflammatory. This document is electronically signed by Pily Brown., August 23 2018 12:15:08 PM ET
== END 2018-08-23 13:55 | disposition home or self-care (01) | DRG 69 ==
LOC: ED 12:21 → 4A 13:44
PROVIDERS: ADMIT Internal Medicine; ATTEND Internal Medicine
DX: G45.9 Transient cerebral ischemic attack, unspecified (principal); F17.213 Nicotine dependence, cigarettes, with withdrawal; I10 Essential (primary) hypertension; J44.9 Chronic obstructive pulmonary disease, unspecified; I48.0 Paroxysmal atrial fibrillation; M10.9 Gout, unspecified; R29.810 Facial weakness; E87.6 Hypokalemia; Z91.19 Patient's noncompliance with other medical treatment and regimen; Z82.49 Family history of ischemic heart disease and other diseases of the circulatory system; Z79.899 Other long term (current) drug therapy; Z71.6 Tobacco abuse counseling
CPT/HCPCS: 36415; 70450; 70470; 80048; 80053; 80061; 81001; 82550; 82553; 82962; 84439; 84443; 84484; 85025; 85610; 85670; 85730; 93005; 93010; 93306; 93880; 94640; 99406; G0378; A9270-GY; Q9967

== ENCOUNTER 2019-07-21 09:00 | Emergency (ER) | payer MEDICARE ==
[2019-07-21 09:24] VITALS: BP 105/71
--- NOTE | 2019-07-21 12:44 | Emergency Department Report ---
ED General Adult HPI - General Chief complaint: Pain General Stated complaint: GOUT Time Seen by Provider: 07/21/19 11:39 Source: patient, EMS Mode of arrival: Wheelchair Limitations: Physical Limitation - History of Present Illness Initial comments: 69-year-old Lebanese male with asthma department complaining of a gouty arthritis flareup and seeks to have his medications refilled. Reports no chest pain or palpitation. No fever, chills, sweats no nausea vomiting no myalgias no nausea no hematemesis. No trauma - Related Data Home Medications Medication Instructions Recorded Confirmed Last Taken Symbicort 160-4.5 Mcg Inhaler 160 mcg INHALATION BID 03/09/18 08/20/18 1 Day Ago ~08/19/18 Tamsulosin 0.4 mg PO DAILY 03/09/18 08/20/18 1 Day Ago ~08/19/18 Previous Rx's Medication Instructions Recorded Last Taken Type Albuterol Sulfate [Ventolin Hfa] 2 puff IH QID PRN #1 hfa.aer.ad 03/10/18 1 Day Ago Rx ~08/19/18 Nicotine [Habitrol] 14 mg TD DAILY #30 patch 03/10/18 1 Day Ago Rx ~08/19/18 Prednisone [predniSONE 5 mg (6-Day 5 mg PO .TAPER #1 tab.ds.pk 03/10/18 1 Day Ago Rx Pack, 21 Tabs)] ~08/19/18 Apixaban [Eliquis] 5 mg PO BID #60 tab.ds.pk 08/23/18 Unknown Rx Aspirin [Aspirin BABY CHEW TAB] 81 mg PO QDAY #30 tab.chew 08/23/18 Unknown Rx AtorvaSTATin [Lipitor] 40 mg PO QHS #30 tablet 08/23/18 Unknown Rx amLODIPine 10 mg PO DAILY #30 08/23/18 Unknown Rx lisinopriL [Zestril TAB] 20 mg PO QDAY #30 tablet 08/23/18 Unknown Rx Allergies Allergy/AdvReac Type Severity Reaction Status Date / Time No Known Allergies Allergy Unverified 03/09/18 00:51 ED Review of Systems ROS: Stated complaint: GOUT Other details as noted in HPI Comment: All other systems reviewed and negative ED Past Medical Hx - Past Medical History Previous Medical History?: Yes Hx Hypertension: Yes Hx Asthma: Yes Hx COPD: Yes Additional medical history: Gout - Social History Smoking Status: Unknown if ever smoked Substance Use Type: None - Medications Home Medications: Home Medications Medication Instructions Recorded Confirmed Last Taken Type Symbicort 160-4.5 Mcg Inhaler 160 mcg INHALATION BID 03/09/18 08/20/18 1 Day Ago History ~08/19/18 Tamsulosin 0.4 mg PO DAILY 03/09/18 08/20/18 1 Day Ago History ~08/19/18 Albuterol Sulfate [Ventolin Hfa] 2 puff IH QID PRN #1 hfa.aer.ad 03/10/18 08/20/18 1 Day Ago Rx ~08/19/18 Nicotine [Habitrol] 14 mg TD DAILY #30 patch 03/10/18 08/20/18 1 Day Ago Rx ~08/19/18 Prednisone [predniSONE 5 mg (6-Day 5 mg PO .TAPER #1 tab.ds.pk 03/10/18 08/20/18 1 Day Ago Rx Pack, 21 Tabs)] ~08/19/18 Apixaban [Eliquis] 5 mg PO BID #60 tab.ds.pk 08/23/18 Unknown Rx Aspirin [Aspirin BABY CHEW TAB] 81 mg PO QDAY #30 tab.chew 08/23/18 Unknown Rx AtorvaSTATin [Lipitor] 40 mg PO QHS #30 tablet 08/23/18 Unknown Rx amLODIPine 10 mg PO DAILY #30 08/23/18 Unknown Rx lisinopriL [Zestril TAB] 20 mg PO QDAY #30 tablet 08/23/18 Unknown Rx ED Physical Exam - General Limitations: Physical Limitation General appearance: alert, in no apparent distress - Head Head exam: Present: atraumatic, normocephalic - Eye Eye exam: Present: normal appearance, PERRL, EOMI Pupils: Present: normal accommodation - ENT ENT exam: Present: normal exam, mucous membranes moist - Neck Neck exam: Present: normal inspection, full ROM - Respiratory Respiratory exam: Present: normal lung sounds bilaterally. Absent: respiratory distress, wheezes, rales, rhonchi, chest wall tenderness, accessory muscle use, decreased breath sounds - Cardiovascular Cardiovascular Exam: Present: regular rate, normal rhythm. Absent: systolic murmur, diastolic murmur, rubs, gallop - GI/Abdominal GI/Abdominal exam: Present: soft, normal bowel sounds - Rectal Rectal exam: Present: deferred - Extremities Exam Extremities exam: Present: normal inspection, normal capillary refill, joint swelling (To the hands and ankles). Absent: calf tenderness - Back Exam Back exam: Present: normal inspection. Absent: CVA tenderness (R), CVA tenderness (L) - Neurological Exam Neurological exam: Present: alert, oriented X3, CN II-XII intact - Psychiatric Psychiatric exam: Present: normal affect, normal mood - Skin Skin exam: Present: warm, dry, intact, normal color. Absent: rash, cyanosis, erythema ED Course Vital Signs 07/21/19 09:21 Temperature 97.6 F Pulse Rate 111 H Respiratory 18 Rate Blood Pressure 105/71 O2 Sat by Pulse 99 Oximetry Critical care attestation.: If time is entered above; I have spent that time in minutes in the direct care of this critically ill patient, excluding procedure time. ED Disposition Clinical Impression: Gout Disposition: Z MED SCREENING EXAM-LEFT Is pt being admited?: No Does the pt Need Aspirin: No Condition: Stable Instructions: Acute Gouty Arthritis (ED) Additional Instructions: Please follow-up with your primary care provider or the listed provider for further evaluation and treatment of your gouty arthritis at this present time there is no emergent medical condition present as we discussed. You can utilize [id number] analgesics for your pain control until you have the ability to to to follow-up Referrals: ELLIE BONDS MD [Primary Care Provider] - 3-5 Days APRYL TERRY MD [Staff Physician] - 3-5 Days
[2019-07-21] MEDS ORDERED: HYDROcodone/ACETAMINOPHEN 5-325 MG TAB PO STA (14:42)
[2019-07-21] MEDS ORDERED: predniSONE 50 MG TAB PO STA (14:42)
== END 2019-07-21 12:59 | disposition left against medical advice (07) ==
LOC: ED 09:00
DX: M10.9 Gout, unspecified (principal); I10 Essential (primary) hypertension; J44.9 Chronic obstructive pulmonary disease, unspecified; Z79.82 Long term (current) use of aspirin; Z79.899 Other long term (current) drug therapy
CPT/HCPCS: 99283; J7512